=== PATIENT | female | born 1990 | race Caucasian/White ===

== ENCOUNTER 2017-09-02 00:20 | Inpatient (IN) | payer BC ==
[2017-09-02 01:07] LABS: Hematocrit 43 % (35-47); Mean Corpuscular HGB Conc 35 g/dl (31-36); Mean Corpuscular Hemoglobin 33 pg (27-31); Mean Corpuscular Volume 96 fL (80-97); Mean Platelet Volume 10 um3 (7.4-10.4); Red Blood Count 4.52 10^6/ul (4.0-5.4); Red Cell Distribution Width 13 % (10.5-15); White Blood Count 13.1 10^3/ul (3.5-10.8)
[2017-09-02 01:21] LABS: Albumin 3.5 g/dL (3.2-5.2); BUN/Creatinine Ratio 18.9 (8-20); Calcium 9.6 mg/dL (8.6-10.3); EGFR Non-African American 138.4 (>60); Globulin 3.5 g/dL (2-4); Potassium 3.6 mmol/L (3.5-5.0); Total Bilirubin 0.4 mg/dL (0.2-1.0); Uric Acid 4.5 mg/dL (2.3-6.6)
[2017-09-02] MEDS ORDERED: Oxytocin in LR* 20 UNITS/1,000 ML BAG IVPB ONE (09:55)
[2017-09-02] MEDS ORDERED: fentaNYL* 50 MCG/ML 2 ML VIAL (100 MCG VIAL) ONE (10:18)
[2017-09-02] MEDS ORDERED: fentaNYL* 50 MCG/ML 2 ML VIAL (100 MCG VIAL) IV SLOW PU ONE (10:20)
[2017-09-02] MEDS ORDERED: ceFOXitin 2 GM IVPREMIX* 2 GM/50 ML BAG IVPB ONE (10:32)
[2017-09-02 10:42] LABS: Hematocrit 42 % (35-47); Hemoglobin 14.3 g/dl (12.0-16.0); Mean Corpuscular HGB Conc 34 g/dl (31-36); Mean Corpuscular Hemoglobin 33 pg (27-31); Mean Corpuscular Volume 96 fL (80-97); Mean Platelet Volume 9 um3 (7.4-10.4); Red Blood Count 4.37 10^6/ul (4.0-5.4); Red Cell Distribution Width 13 % (10.5-15); White Blood Count 15.3 10^3/ul (3.5-10.8)
[2017-09-02] MEDS ORDERED: Dibucaine 1% 28.35 GM TUBE PR PRN (10:43)
[2017-09-02] MEDS ORDERED: Glycerin ADULT SUPP PR PRN (10:43)
[2017-09-02] MEDS ORDERED: oxyCODONE/Acetamin 5/325 MG* TAB PO PRN (10:43)
[2017-09-02] MEDS ORDERED: Witch Hazel PAD* JAR TOPICAL PRN (10:43)
[2017-09-02] MEDS ORDERED: Acetaminophen TAB* 325 MG PO PRN (10:43)
[2017-09-02] MEDS ORDERED: ceFOXitin 2 GM IVPREMIX* 2 GM/50 ML BAG ONE (10:51)
[2017-09-02] MEDS ORDERED: Oxytocin in LR* 20 UNITS/1,000 ML BAG IVPB SCH (11:00)
[2017-09-02 15:01] LABS: Hematocrit 37 % (35-47); Hemoglobin 12.4 g/dl (12.0-16.0); Mean Corpuscular HGB Conc 34 g/dl (31-36); Mean Corpuscular Hemoglobin 33 pg (27-31); Mean Corpuscular Volume 96 fL (80-97); Mean Platelet Volume 9 um3 (7.4-10.4); Red Cell Distribution Width 12 % (10.5-15)
[2017-09-02] MEDS: Docusate CAP* 100 MG PO SCH (21:44)
[2017-09-03 07:00] LABS: Hematocrit 29 % (35-47); Hemoglobin 10.2 g/dl (12.0-16.0); Mean Corpuscular HGB Conc 35 g/dl (31-36); Mean Corpuscular Hemoglobin 34 pg (27-31); Mean Corpuscular Volume 96 fL (80-97); Mean Platelet Volume 9 um3 (7.4-10.4); Red Blood Count 3.02 10^6/ul (4.0-5.4); Red Cell Distribution Width 13 % (10.5-15); White Blood Count 14.4 10^3/ul (3.5-10.8)
[2017-09-03] MEDS: Docusate CAP* 100 MG PO SCH ×4 (10:47→21:18)
[2017-09-03] MEDS: Ferrous Gluconate TAB* 324 MG TAB PO SCH ×2 (10:47→21:18)
[2017-09-03] MEDS: Ibuprofen TAB* 600 MG PO PRN (21:18)
[2017-09-04 08:22] VITALS: BP 139/73
[2017-09-04] MEDS: Docusate CAP* 100 MG PO SCH (09:30)
[2017-09-04] MEDS: Ferrous Gluconate TAB* 324 MG TAB PO SCH (09:30)
[2017-09-04] MEDS: Ibuprofen TAB* 600 MG PO PRN (09:35)
== END 2017-09-04 09:54 | disposition home or self-care (01) | DRG 541 ==
LOC: MCHOBOUT 00:20 → MCHOB 00:50
PROVIDERS: ADMIT Midwife; ATTEND Midwife
PROC: 10E0XZZ Delivery of Products of Conception, External Approach (ICD-10-PCS; principal; 2017-09-02)
PROC: 10907ZC Drainage of Amniotic Fluid, Therapeutic from Products of Conception, Via Natural or Artificial Opening (ICD-10-PCS; 2017-09-02)
PROC: 0HQ9XZZ Repair Perineum Skin, External Approach (ICD-10-PCS; 2017-09-02)
PROC: 10D17Z9 Manual Extraction of Products of Conception, Retained, Via Natural or Artificial Opening (ICD-10-PCS; 2017-09-02)
DX: O24.420 Gestational diabetes mellitus in childbirth, diet controlled (principal); O72.2 Delayed and secondary postpartum hemorrhage; O70.0 First degree perineal laceration during delivery; O32.6XX0 Maternal care for compound presentation, not applicable or unspecified; O77.0 Labor and delivery complicated by meconium in amniotic fluid; O43.123 Velamentous insertion of umbilical cord, third trimester; Z3A.39 39 weeks gestation of pregnancy; Z37.0 Single live birth
CPT/HCPCS: 36415; 76815; 80053; 84550; 85025; 85027; 85384; 86850; 86900; 86901; A9270-GY; J0694; J3010

== ENCOUNTER 2019-07-27 10:12 | Emergency (ER) | payer BC ==
--- NOTE | 2019-07-27 10:43 | ED ---
GI/ HPI - HPI Summary HPI Summary: This patient is a 29 year old F presenting to [facility] accompanied by male friend with a chief complaint of possible prolapse of uterus since last night 07/26/19. Symptoms aggravated by nothing. Symptoms alleviated by nothing. Patient reports she has been on her period and has been bleeding for the last 8 days but that she has been bleeding longer than usual. Patient recalls she did not sleep with her tampon in last night because she was coming to the end of her cycle. Patient reports something fleshy and large hanging down per triage. Patient reports lower back pain last night but she always does. Patient reports cramping which she thought was due to period. Hx PCOS (period irregular). Patient states she feels like somethings there. Patient denies nausea, vomiting, diarrhea, dysuria. Patient reports that she has not seen back tender since her daughters . Home Medications Medication Instructions Recorded Confirmed Type Vitamin 1 tab PO DAILY 09/02/17 09/02/17 History Acetaminophen TAB* [Tylenol TAB*] 650 mg PO Q4H PRN #0 tab 09/04/17 Rx Ibuprofen TAB* [Motrin TAB* 600 MG] 600 mg PO Q6H PRN #0 tab 09/04/17 Rx - History of Current Complaint Chief Complaint: EDUrogenitalProblems Time Seen by Provider: 07/27/19 10:18 Stated Complaint: POSSIBLE PROLAPSED UTERUS Hx Obtained From: Patient Hx Last Menstrual Period: 06/07/14 Onset/Duration: Started Days Ago, Still Present Timing: Constant Pain Intensity: 6 Associated Signs and Symptoms: Negative: Nausea, Vomiting, Diarrhea, Dysuria Aggravating Factor(s): Nothing Alleviating Factor(s): Nothing - Allergy/Home Medications Allergies/Adverse Reactions: Allergies Allergy/AdvReac Type Severity Reaction Status Date / Time No Known Allergies Allergy Verified 07/27/19 10:17 PMH/Surg Hx/FS Hx/Imm Hx Endocrine/Hematology History: Denies: Hx Diabetes Cardiovascular History: Denies: Hx Hypertension, Hx Pacemaker/ICD History: Denies: Hx Renal Disease Sensory History: Denies: Hx Hearing Aid Neurological History: Reports: Other Neuro Impairments/Disorders - Pt had TIA in 2006 Psychiatric History: Denies: Hx Panic Disorder - Surgical History Surgery Procedure, Year, and Place: Umbilical hernia repair at 8 months Infectious Disease History: No Infectious Disease History: Denies: Traveled Outside the [place] in Last 30 Days - Family History Known Family History: Positive: Diabetes - Social History Alcohol Use: None Hx Substance Use: No Substance Use Type: Reports: None Hx Tobacco Use: No Smoking Status (MU): Never Smoked Tobacco Have You Smoked in the Last Year: No Review of Systems Negative: Vomiting, Diarrhea, Nausea Positive: other - bleeding longer than normal for period. Negative: dysuria All Other Systems Reviewed And Are Negative: Yes Physical Exam - Summary Physical Exam Summary: General: Well-developed, Well-nourished FEMALE. No acute distress. HEENT: Normocephalic, Atraumatic. Eyes: Conjuctiva normal, PERRL. Ears: TMs within normal limits. Nares: (-) discharge, (-) erythema. Oropharynx: Clear, mucous membranes moist, (-) exudates. Neck: Soft, FROM, (-) lymphadenopathy, (-) thyromegaly, (-) JVD. Cardiovascular: Normal sinus rhythm, (-) murmur. Lungs: Clear to auscultation bilaterally (-) wheezes, (-) rales, (-) rhonchi. Abdomen: Soft, non-tender, non-distended, (-) organomegaly, normal bowel sounds. Back: (-) CVA tenderness Extremities: No edema. Skin: Warm, dry, (-) rash. Neuro: Alert and oriented x3, no focal deficits. Psychiatric: Mood normal, affect normal. OBGYN Exam: normal external female genitalia with Valsalva maneuver, protrusion of anterior structure questionable bladder vs. uterus, retracts at rest. Triage Information Reviewed: Yes Vital Signs On Initial Exam: Initial Vitals Temp Pulse Resp BP Pulse Ox 98.4 F 100 18 155/97 98 07/27/19 10:15 07/27/19 10:15 07/27/19 10:15 07/27/19 10:15 07/27/19 10:15 Vital Signs Reviewed: Yes Diagnostics - Vital Signs Vital Signs Temp Pulse Resp BP Pulse Ox 07/27/19 10:15 98.4 F 100 18 155/97 98 - Laboratory Lab Statement: Any lab studies that have been ordered have been reviewed, and results considered in the medical decision making process. GIGU Course/Dx - Course Assessment/Plan: This patient is a 29 year old F presenting to [facility] accompanied by male friend with a chief complaint of possible prolapse of uterus since last night 07/26/19. Symptoms aggravated by nothing. Symptoms alleviated by nothing. Patient reports she has been on her period and has been bleeding for the last 8 days but that she has been bleeding longer than usual. Patient thought she had slept with her tampon in last night but recalled that she did not because she was coming to the end of her cycle. Patient reports something fleshy and large hanging down per triage. Patient reports lower back pain last night but she that she always does. Patient reports cramping which she thought was due to period. Hx PCOS (period irregular). Patient states she feels like somethings there. Patient denies nausea, vomiting, diarrhea, dysuria. Patient reports that she has not seen back tender since her daughter s . Physical Exam Findings reveal no abnormalities except for normal external female genitalia with Valsalva maneuver, protrusion of anterior structure questionable bladder vs. uterus, retracts at rest. No tests were performed in ER. Patient will be discharged and follow up from [facility]. The patient is agreeable with this plan. - Diagnoses Provider Diagnoses: Uterine prolapse Discharge ED - Sign-Out/Discharge Documenting (check all that apply): Patient Departure - discharge Patient Received Moderate/Deep Sedation with Procedure: No - Discharge Plan Condition: Stable Disposition: HOME Patient Education Materials: Uterine Prolapse (ED) Referrals: Autumn Diamond MD [Primary Care Provider] - 3 Days Daniel Woodruff MD [Medical Doctor] - 3 Days Additional Instructions: Please follow up with your primary care physician and OBGYN within three days. Please return to ED for any new or worsening symptoms. - Attestation Statements Document Initiated by Scribe: Yes Documenting Scribe: Lisa Hodges Provider For Whom Cynthia is Documenting (Include Credential): Dr. aPmela Clifford MD Scribe Attestation: Lisa Moore scribed for Dr. Pamela Clifford MD on 07/27/19 at 1051. Status of Scribe Document: Ready
--- OUTSIDE RECORDS SUMMARY | 2019-07-27 11:07 | XMS REPORT | Continuity of Care Document ---
:1990 External Reference #:[id number] Author Name Jessie Vitale NP Address [address] [place] [address] Care Team Providers Name Role Phone Autumn Diamond M.D. - Family Medicine Care Team Information Production Sanitizer Unavailable Problems Active Problems Provider Date Polycystic ovaries Autumn Diamond M.D. Onset: 08/25/2014 Social History Type Date Description Comments Sex Unknown Tobacco Use Start: Unknown Never Smoked Cigarettes ETOH Use Rare Allergies, Adverse Reactions, Alerts Description No Known Drug Allergies Medications Active Medications SIG Qnty Indications Ordering Provider Date Clindamycin apply a thin 50gm L70.0 Jessie Vitale, 07/19/2019 Phosphate/Benzoyl layer to face [employer] Peroxide once daily 1.2-2.5% Gel Metformin HCL ER 2 by mouth once 60tabs E28.2 Jessie Vitale, 2018 500mg a day [employer] Tablets ER 24HR Omeprazole 1 by mouth 30caps K21.9 William T. 09/10/2018 20mg Capsules every day MD [facility] [place] Immunizations Description No Information Available Vital Signs Date Vital Result Comment 07/19/2019 12:53pm BP Systolic 130 mmHg BP Diastolic 88 mmHg Heart Rate 90 /min Body Temperature 98.6 F Weight 215.00 lb 08/16/2018 2:46pm BP Systolic 120 mmHg BP Diastolic 70 mmHg Heart Rate 72 /min Body Temperature 97.9 F Respiratory Rate 18 /min Weight 220.00 lb Results Description No Information Available Procedures Description No Information Available Medical Devices Description No Information Available Encounters Description No Information Available Assessments Date Code Description Provider 07/19/2019 E28.2 Polycystic ovarian syndrome Jessie Vitale NP 07/19/2019 L70.0 Acne vulgaris Jessie Vitale NP 07/19/2019 K21.9 Gastro-esophageal reflux disease without Jessie Vitale NP esophagitis 07/19/2019 L85.8 Other specified epidermal thickening Jessie Vitale NP Plan of Treatment 07/19/2019 - Jessie Vitale, NPE28.2 Polycystic ovarian syndromeNew Medication:Metformin HCL ER 500 mg - 2 by mouth once a dayNew Labs:CBC Electronic ([facility]), Ordered: 07/19/19Comp Metabolic-[facility], Ordered: 07/19/19Lipid Panel-[facility], Ordered: 07/19/19TSH ([facility]), Ordered: 07/19/19Testosterone Total, Ordered: 07/19/19Comments:We will continue metformin, try a longer-acting formulation to help prevent side effects. Come back for fasting labs.L70.0 Acne vulgarisNew Medication:Clindamycin Phosphate/ Benzoyl Peroxide 1.2-2.5 % - apply a thin layer to face once dailyComments:Try this preparation.K21.9 Gastro-esophageal reflux disease without esophagitisComments:Continue to minimize your use of this medication. If you become , I recommend you switch to famotidine or ranitidine.L85.8 Other specified epidermal thickeningAllComments:1. Patient has been queried about patient's goals/preferences and functional/lifestyle goals at relevant visits. If relevant, describe: Has been discussed, noted above2. Treatment goals as explainedto the patient: see above3. Are there barriers to meeting treatment goals? Yes If Yes, please describe: Barriers include possible insurance limits, disease process, and difficulty with lifestyle changes4. Self- Management goals as described to the patient: Yes, see above As always, we strongly encourage a healthy diet and making physical activity a part of your every day life. If you have questions about how or where to start, please contact the office. Functional Status Description No Information Available Mental Status Description No Information Available Referrals Description No Information Available
[2019-07-27 11:17] VITALS: BP 151/96
== END 2019-07-27 11:16 | disposition home or self-care (01) ==
LOC: ED 10:12
DX: N81.4 Uterovaginal prolapse, unspecified (principal)
CPT/HCPCS: 99282

== ENCOUNTER 2022-05-03 07:57 | Inpatient (IN) ==
[2022-05-03] MEDS ORDERED: Buffered Lidocaine 1% SYRIN 1 ml INTRADERM ONE (08:34)
[2022-05-03] MEDS ORDERED: Lactated Ringers 1000 ml BAG 1,000 ML IV ONE ×2 (08:34→10:38)
[2022-05-03] MEDS ORDERED: Lactated Ringers 1000 ml BAG 1,000 ML IV SCH ×3 (09:00→16:00)
[2022-05-03] MEDS ORDERED: Oxytocin in LR 20 UNITS/1,000 ML BAG IVPB SCH ×2 (09:00→16:00)
[2022-05-03 09:31] LABS: ABS Monocytes 0.7 10^3/ul (0-0.8); Eosinophil % 0.4 %; Hematocrit 44 % (35-47); Hemoglobin 15.2 g/dL (12.0-16.0); Lymphocyte % 22.7 %; Mean Corpuscular HGB Conc 35 g/dL (31-36); Mean Corpuscular Hemoglobin 33 pg (27-31); Mean Corpuscular Volume 95 fL (80-97); Mean Platelet Volume 8.9 fL (7.4-10.4); Nucleated Red Blood Cells % 0.2; Platelet Count 177 10^3/uL (150-450); Red Blood Count 4.56 10^6 /uL (3.70-4.87); Red Cell Distribution Width 13 % (10-15); White Blood Count 8.6 10^3/uL (3.5-10.8)
[2022-05-03] MEDS ORDERED: OBEPIDURAL (200 ML) 200 ML EPIDURAL ONE (09:56)
[2022-05-03 10:29] LABS: Urine Benzodiazepine Screen None Detected (None Detect); Urine Cannabinoids Screen None Detected (None Detect); Urine Opiates Screen None Detected (None Detect)
[2022-05-03] MEDS ORDERED: Lactated Ringers 1000 ml BAG 500 ML IV PRN ×2 (10:38)
[2022-05-03] MEDS ORDERED: Sodium Citrate/Citric Acid LIQ 15 ML UDC PO PRN (10:38)
[2022-05-03] MEDS ORDERED: Phenylephrine 40 mcg/mL 10mL (400mcg) SYRINGE IV PUSH PRN ×2 (10:38)
[2022-05-03] MEDS ORDERED: OBEPIDURAL (200 ML) 200 ML EPIDURAL SCH (11:00)
[2022-05-03 11:25] LABS: Urine Appearance Clear; Urine Bilirubin Negative (Negative); Urine Blood 2+ (Negative); Urine Color Straw; Urine Glucose Negative (Negative); Urine Ketones Trace (Negative); Urine Nitrite Negative (Negative); Urine Protein Negative (Negative); Urine Specific Gravity 1.004 (1.002-1.030); Urine Urobilinogen Negative (Negative)
[2022-05-03 11:29] LABS: Urine Bacteria Absent (Absent); Urine Red Blood Cell Trace(0-2/hpf) (Absent); Urine Squamous Epithelial Cell Present (Absent); Urine White Blood Cell Absent (Absent)
[2022-05-03] MEDS ORDERED: Tranexamic Acid 1 GM/100ML BAG 0 MG/0 ML BAG IV ONE (14:35)
[2022-05-03] MEDS ORDERED: Witch Hazel PAD JAR TOPICAL PRN (15:07)
[2022-05-03] MEDS ORDERED: Dibucaine 1% OINT 28.35 GM TUBE PR PRN (15:07)
[2022-05-03] MEDS ORDERED: Glycerin ADULT 2.4 gm SUPP PR PRN (15:07)
[2022-05-03] MEDS ORDERED: Tetan/Diph/Pertus SYR(Tdap) 0.5 ML SYR(BOOSTRIX) use SYR contains LATEX IM ONE (15:07)
[2022-05-03] MEDS ORDERED: ceFOXitin 2 GM IVPREMIX 2 GM/50 ML BAG IVPB ONE (15:09)
[2022-05-03] MEDS ORDERED: Lidocaine 1% MPF 5 ML VIAL ONE (16:37)
[2022-05-04 06:32] LABS: ABS Eosinophils 0.1 10^3/ul (0-0.6); ABS Lymphocytes 1.8 10^3/ul (1.0-4.8); ABS Monocytes 0.6 10^3/ul (0-0.8); ABS Neutrophils 7.9 10^3/ul (1.5-7.7); Eosinophil % 0.9 %; Hematocrit 35 % (35-47); Hemoglobin 12.4 g/dL (12.0-16.0); Lymphocyte % 17.1 %; Mean Corpuscular HGB Conc 36 g/dL (31-36); Mean Corpuscular Hemoglobin 35 pg (27-31); Mean Corpuscular Volume 96 fL (80-97); Mean Platelet Volume 9.3 fL (7.4-10.4); Platelet Count 148 10^3/uL (150-450); Red Blood Count 3.61 10^6 /uL (3.70-4.87); Red Cell Distribution Width 13 % (10-15); White Blood Count 10.4 10^3/uL (3.5-10.8)
[2022-05-05 08:32] VITALS: BP 129/74
== END 2022-05-05 12:15 | disposition home or self-care (01) | DRG 560 ==
LOC: MCHOBOUT 07:57 → MCHOB 09:00
PROVIDERS: ADMIT Obstetrics & Gynecology; ATTEND Obstetrics & Gynecology